=== PATIENT | male | born 1955 | race Caucasian/White ===

== ENCOUNTER 2023-09-01 12:50 | Outpatient (OUT) | payer MEDICARE, SELFPAY | END 2023-09-01 12:51 | disposition home or self-care (01) | LOC: PST 12:51 | PROVIDERS: Visit Provider Surgery | DX: Z01.818 Encounter for other preprocedural examination (principal); Z12.11 Encounter for screening for malignant neoplasm of colon ==

== ENCOUNTER 2023-09-02 08:38 | Day surgery (SDC) | payer MEDICARE, SELFPAY ==
--- NOTE | 2023-09-02 | OP_ITS ---
OPERATION DATE: ??09/02/2023 PREOPERATIVE DIAGNOSIS:? Colorectal screening. POSTOPERATIVE DIAGNOSIS:? 1.2 cm sigmoid polyp. PROCEDURE:? Colonoscopy to cecum with hot snare polypectomy x1 for a sigmoid polyp. SURGEON:? Erik Joseph M.D. ANESTHESIA:? Monitored anesthesia care. ESTIMATED BLOOD LOSS:? Less than 1 mL. INDICATIONS AND CONSENT:? Patient is a 68-year-old male presents for colorectal screening.? Indications, risks, benefits, alternatives of proceeding with colonoscopy were explained extensively to the patient, including the risks of bleeding, colon perforation or anesthetic complications.? All of his questions were answered.? Informed consent was obtained. PROCEDURE:? Patient brought to the operating room, placed in the left lateral decubitus position.? Monitored anesthesia care was provided.? Rectal exam was performed which showed no masses or blood.? The scope was inserted into the anal canal.? Under direct visualization was advanced.? With the aid of abdominal compression, it was advanced to the cecum where cecal markings were clearly identified.? There was noted to be a good prep.? Upon withdrawal of the scope, mucosal surfaces were carefully examined.? There were no mass lesions or inflammatory changes.? Within the distal sigmoid colon, there was noted to be a large, 1.2 cm pedunculated polyp that was removed with hot snare with good hemostasis. ?The scope was retroflexed in the anal canal.? There were prominent rectal veins.? No significant hemorrhoidal disease.? Scope was then withdrawn.? Patient tolerated procedure well, was sent to recovery room in good condition. f/u colonoscopy in 3 years, but may changed based on pathology results. CC:? Patient?s family physician NATALIE
[2023-09-02 09:03] VITALS: BP 110/77; PULSE 80; RESP 16; TEMP 36.8; O2SAT 99; BMI 22.1
[2023-09-02] MEDS: LACTATED RINGER'S SOLUTION 1,000 ML 50 ML IV (09:17)
[2023-09-02 11:44] VITALS: BP 100/57; PULSE 83; RESP 18; TEMP 36.3; O2SAT 96
[2023-09-02 12:00] VITALS: BP 104/69; PULSE 87; RESP 16; O2SAT 96
[2023-09-02 12:15] VITALS: BP 117/69; PULSE 84; RESP 16; O2SAT 96
== END 2023-09-02 12:24 | disposition home or self-care (01) ==
PROVIDERS: PCP Family Medicine; Visit Provider Surgery
PROC: (CPT 45385; principal; 2023-09-02 09:55)
DX: Z12.11 Encounter for screening for malignant neoplasm of colon (principal); D12.5 Benign neoplasm of sigmoid colon; E03.9 Hypothyroidism, unspecified; Z79.890 Hormone replacement therapy; Z87.891 Personal history of nicotine dependence
CPT/HCPCS: 45385; 88305; J2704

== ENCOUNTER 2024-07-27 13:36 | Outpatient (OUT) | payer MEDICARE, SELFPAY ==
--- NOTE | 2024-07-27 13:42 | XR_ITS ---
The [address] [address] Patient Name: KP MEJÍA MRN: [id number] date: 1955 Sex: M Assigned Patient Location: [facility] Current Patient Location: Accession/Order Number: [id number] Exam Date: 07/27/2024 13:47 Report Date: 07/28/2024 07:52 At the request of: MELONIE BELTRAN Procedure: XR lumbar spine 2-3V EXAMINATION: XR lumbar spine 2-3V HISTORY: Chronic back pain greater than 3 months M54.9 ; chronic lower right back pain; no known injury COMPARISON: XR lumbar spine 03/31/2014 FINDINGS: BONES: Developmental variant partial lumbarization of S1. Mild degenerative facet arthropathy L4-5, L5-S1. No fracture, spondylolisthesis, bone lesion. DISC SPACES: Moderate narrowing L5-S1. PARASPINOUS: Negative. No paraspinous abnormality is seen. OTHER: Negative. XR/XR lumbar spine 2-3V IMPRESSION: 1. L5-S1 moderate degenerative disc disease; slightly progressed. Electronically authenticated by: ASUTIN SAEED Date: 07/28/2024 07:52
== END 2024-07-27 13:37 | disposition home or self-care (01) ==
LOC: RAD 13:38
DX: M54.9 Dorsalgia, unspecified (principal); M51.36 Other intervertebral disc degeneration, lumbar region
CPT/HCPCS: 72100